=== PATIENT | female | born 1970 | race Caucasian/White ===

== ENCOUNTER 2018-09-04 06:30 | Emergency (ER) | payer MEDICAID ==
[~2018-09-04] VITALS: Ht 157.5 cm; Wt 68.2 kg
[2018-09-04 06:34] VITALS: Ht 157.5 cm; Wt 68.2 kg
[2018-09-04 07:30] LABS: microscopic required? YES; urine erythrocyte 3+ (NEGATIVE)
[2018-09-04 07:34] LABS: BASOPHIL % 0.3 % (0-2); PLATELET COUNT 328 x10^3mcL (130-400)
[2018-09-04 07:36] LABS: CALCIUM 8.8 mg/dL (8.5-10.1); CARBON DIOXIDE 25.9 mmol/L (21-32); CHLORIDE SERUM 103 mmol/L (98-107); CREATININE SERUM 0.8 mg/dL (0.6-1.0); GFR1 > 60 mL/min; GLUCOSE SERUM 126 mg/dL (74-106); POTASSIUM SERUM 3.7 mmol/L (3.5-5.1); SODIUM SERUM 138 mmol/L (136-145)
[2018-09-04 07:41] LABS: ALBUMIN 4.1 g/dL (3.4-5.0); ALKALINE PHOSPHATASE 109 U/L (46-116); ALT/SGPT 31 U/L (14-59); AST/SGOT 24 U/L (15-37); BILIRUBIN TOTAL 0.28 mg/dL (0.20-1.00); LIPASE 292 IU/L (73-393)
[2018-09-04 07:48] LABS: TOTAL PROTEIN, SERUM 8.9 g/dL (6.4-8.2)
[2018-09-04 07:49] LABS: RED CELL DISTRIBUTION WIDTH 16.8 % (11.5-14.5)
[2018-09-04 09:59] VITALS: BP 156/81
== END 2018-09-04 09:59 | disposition home or self-care (01) ==
LOC: ED 06:30
PROVIDERS: Emergency Medicine
DX: K59.00 Constipation, unspecified (principal); N93.8 Other specified abnormal uterine and vaginal bleeding; Z98.890 Other specified postprocedural states
CPT/HCPCS: 36415